=== PATIENT | female | born 1950 | race African-American/Black ===

== ENCOUNTER → 2016-07-23 | Outpatient (CLI) | payer OTHER ==
[~2016-07-23] MED LIST: BP MED; INHALER; PREDNISONE PO; TEGRETOL PO; [UNRECOGNIZED DRUG - OTHER] INH
--- NOTE | ~2016-07-23 | CR150 ---
[facility] A Service of [facility] RADIOLOGY TEXT RESULTS PATIENT: MELISSA BECK [facility] #: [id number] : 50 UNIT #: [id number] AGE: [address]: Brendan Mattson MD SEX: F ORDER DR: [id number] [facility] [address] [place], [place] [address] [id number] O MR#: [id number] Acc #: [id number] NAME: MELISSA BECK : 1950 SEX: F STUDY DATE/TIME: 07/23/2016 16:18 UNIT: [facility] ROOM: STUDY DESCRIPTION: CR Hip Min 2 Views Lt Attending Physician: Brendan Mattson M.D. Referring Physician: Brendan Mattson M.D. Ordering Physician: Brendan Mattson M.D. Primary Care Physician: Errol Regalado M.D. MEDICAL IMAGING REPORT This report is preliminary unless electronic signature is present EXAM Left hip 07/23/16 HISTORY 65-year-old female with left hip pain, status post fall 3 weeks ago. COMPARISON Right hip same date. FINDINGS Two views of the left hip demonstrate diffuse bony demineralization. No evidence of a displaced fracture or dislocation. Moderate degenerative change in both hips. Bony pelvis appears intact. Sacrum and SI joints intact. IMPRESSION 1. Osteopenia. No evidence of a displaced fracture or dislocation. However, if clinical symptoms persist, consider further evaluation with MRI to exclude a radiographically occult fracture. 2. Moderate bilateral hip arthrosis. Dictated by... Ryan Puente M.D. THIS IS AN ELECTRONICALLY VERIFIED REPORT Ryan Puente M.D. at 07/24/2016 9:10 AM MILO/barry TD: 07/23/2016 21:34 JOB #: [id number] MEDICAL IMAGING REPORT [facility] A Service of [facility] RADIOLOGY TEXT RESULTS PATIENT: MELISSA BECK LOCATION: [facility] : 50 UNIT #: [id number] AGE: [address]: Brendan Mattson MD SEX: F ORDER DR: Page 1 of 1 COPY
--- NOTE | ~2016-07-23 | CR151 ---
[facility] A Service of [facility] RADIOLOGY TEXT RESULTS PATIENT: [facility]ELIS[facility] [id number] : 50 UNIT #: [id number] AGE: [address]: Brendan Mattson MD SEX: F ORDER DR: [id number] [facility] [place] [address] [place], [place] [address] [id number] O MR#: [id number] Acc #: [id number] NAME: MELISSA BECK : 1950 SEX: F STUDY DATE/TIME: 07/23/2016 16:12 UNIT: [facility] ROOM: STUDY DESCRIPTION: CR Hip Min 2 Views Rt Attending Physician: Brendan Mattson M.D. Referring Physician: Brendan Mattson M.D. Ordering Physician: Brendan Mattson M.D. Primary Care Physician: Errol Regalado M.D. MEDICAL IMAGING REPORT This report is preliminary unless electronic signature is present EXAM Right hip, 07/23/2016 HISTORY 65-year-old female with right hip pain status post fall 3 weeks ago. COMPARISON Left hip same date. FINDINGS 2 views of the right hip demonstrate bony demineralization. No convincing evidence of a displaced fracture or dislocation. There are hitp-rt-[id number] degenerative changes noted in both hips. The bony pelvis appears intact. Sacrum and SI joints appear intact. IMPRESSION 1. Osteopenia. No evidence of a displaced fracture or dislocation. However, examination is somewhat limited secondary to body habitus and bony demineralization. If clinical symptoms persist, consider further evaluation with pelvis/hip MRI. 2. Moderate bilateral hip arthrosis. Dictated by... Ryan Puente M.D. THIS IS AN ELECTRONICALLY VERIFIED REPORT Ryan Puente M.D. at 07/24/2016 9:10 AM MILO/jose luis TD: 07/23/2016 21:43 JOB #: [id number] [facility] A Service of [facility] RADIOLOGY TEXT RESULTS PATIENT: MELISSA BECK LOCATION: [facility] #: [id number] : 50 UNIT #: [id number] AGE: [address]: Brendan Mattson MD SEX: F ORDER DR: MEDICAL IMAGING REPORT Page 1 of 1 COPY
== END | disposition home or self-care (01) ==
LOC: CRAD 15:44
DX: M25.551 Pain in right hip (principal); M25.552 Pain in left hip; M16.0 Bilateral primary osteoarthritis of hip; M85.851 Other specified disorders of bone density and structure, right thigh; M85.852 Other specified disorders of bone density and structure, left thigh
CPT/HCPCS: 73502